=== PATIENT | female | born 1995 | race Caucasian/White ===

== ENCOUNTER 2019-07-10 05:35 | Day surgery (SDC) | payer BC ==
[~2019-07-10] VITALS: Ht 170.2 cm; Wt 59.4 kg
[2019-07-10] MEDS ORDERED: CEFAZOLIN SOD 1 GM in D5W 50 ML IV ONE (08:00)
[2019-07-10] MEDS ORDERED: NS 1000 ML IV.SOLN IV ONE (08:30)
[2019-07-10] MEDS ORDERED: HYDROcodone/ACETAMIN 5-325 MG TAB (NORCO/ VICODIN) PO PRN (08:30)
[2019-07-10] MEDS ORDERED: ONDANSETRON HCL 4 MG/2 ML VIAL IVP PRN (08:30)
[2019-07-10] MEDS ORDERED: LR 1,000 ML IV.SOLN IV ONE (08:30)
[2019-07-10] MEDS ORDERED: SEVOFLURANE 15 MIN GAS INH ONE (08:30)
[2019-07-10] MEDS ORDERED: ONDANSETRON HCL 4 MG/2 ML VIAL ONE (08:30)
[2019-07-10] MEDS ORDERED: KETOROLAC TROMETHAMINE 30 MG VIAL ONE (08:30)
[2019-07-10] MEDS ORDERED: PROPOFOL 200MG/ 20ML VIAL (DIPRIVAN) IV ONE (08:30)
[2019-07-10] MEDS ORDERED: fentaNYL CITRATE 250 MCG/5 ML AMP ONE (08:30)
[2019-07-10] MEDS ORDERED: OXYCODONE/ACETAMINOPHEN 5-325 TABLET PO PRN (08:30)
[2019-07-10] MEDS ORDERED: NS IRRIG SOLN 1000 ML IR ONE (08:30)
[2019-07-10] MEDS ORDERED: MIDAZOLAM HCL 5 MG/ML VIAL (VERSED) IV ONE (08:30)
[2019-07-10] MEDS ORDERED: METOCLOPRAMIDE HCL 10 MG/2 ML VIAL IVP PRN (08:45)
[2019-07-10] MEDS ORDERED: MORPHINE 4 MG/ML INJ. SYRINGE IVP PRN ×3 (08:45)
[2019-07-10] MEDS ORDERED: MORPHINE 4 MG/ML INJ. SYRINGE ONE (08:57)
[2019-07-10 09:21] VITALS: BP_SYST 109
== END 2019-07-10 10:35 | disposition home or self-care (01) ==
LOC: SDS 05:35 → SMU 05:35 → SDS 10:35
PROVIDERS: ATTEND Specialist
DX: N93.8 Other specified abnormal uterine and vaginal bleeding (principal); R93.89 Abnormal findings on diagnostic imaging of other specified body structures
CPT/HCPCS: 58558; 88305; J1885; J2250; J2270; J2405; J2704; J3010; J7030; J7120